=== PATIENT | male | born 1985 | race Caucasian/White ===

== ENCOUNTER → 2016-08-16 | Outpatient (CLI) | payer OTHER ==
[~2016-08-16] VITALS: Ht 198.1 cm; Wt 79.8 kg
[~2016-08-16] MED LIST: DICY10CA59 PO; GADOTERIDOL 279.3 MG/ML 10 ML (PROHANCE) SYR IV ONE; IOHEXOL 300 MG/ML 30 ML (OMNIPAQUE 300) VIAL IV ONE; PRD20T PO; SUCR1TAB36 PO
--- NOTE | 2016-08-16 10:03 | Diagnostic Imaging Report ---
EXAMINATION: Fluoroscopic guided joint injection/arthrogram- left. INDICATION: Left shoulder pain, request for MR arthrogram of the shoulder is submitted. Fluoroscopy time: 59 seconds CONSENT: Informed consent was obtained from the patient. The risks, benefits, potential complications and alternatives were reviewed and all questions answered to the patient's satisfaction. PROCEDURE: After sterile preparation and draping, 1% lidocaine was utilized for local anesthesia. A 22 spinal needle is introduced into the glenohumeral joint under fluoroscopic guidance. After confirmation of proper positioning with intra-articular injection of, 12 ml of 1:150 concentration of Gadavist in normal saline is injected the into the joint. The patient tolerated the procedure well with no immediate complications. FINDINGS: Arthrogram demonstrates Normal distribution of contrast in the joint with no filling of the subacromial subdeltoid bursa seen. IMPRESSION: Successful fluoroscopic guided injection of diluted gadolinium into the left shoulder . MR arthrogram to follow. Dictated by: Dictated on workstation # [id number]
--- NOTE | 2016-08-16 11:04 | Diagnostic Imaging Report ---
PROCEDURE: MRI left joint upper extremity with contrast. TECHNIQUE: Multiplanar, multisequence MRI with intra-articular contrast of the left shoulder was accomplished. INDICATION: Left shoulder pain. FINDINGS: There is no os acromiale or Hill-Sachs deformity. The long head biceps tendon is within its groove. The glenoid labrum and biceps anchor appear normal with no tear identified. In the inferior aspect of the glenoid, there is a focal area of significant cartilage thinning seen measuring 4 mm craniocaudally, coronal oblique image 11, and approximately 5 mm in the anteroposterior dimension. This could be related to old trauma or perhaps congenital. There is no abnormal signal in the underlying bone, and no irregularity of the underlying cortex as well. There is no bone marrow contusion to suggest recent injury. No loose body is seen in the joint. The acromioclavicular joint appears unremarkable. The rotator cuff tendons including the subscapularis tendon appear intact. There is a small amount of contrast seen within the subscapularis tendon fibers likely leaked from the injection site rather than related to a tear. IMPRESSION: 1. Focal area of significant cartilage thinning in the inferior aspect of the glenoid may relate to old injury or possibly a congenital cartilage defect. The underlying cortex and subchondral bone and marrow signal appear normal. 2. No rotator cuff or labral tears. Dictated by: Dictated on workstation # [id number]
== END ==
LOC: RAD 08:53
PROVIDERS: ATTEND Nurse Practitioner
DX: M75.112 Incomplete rotator cuff tear or rupture of left shoulder, not specified as traumatic (principal)
CPT/HCPCS: 23350; 49465; 73040; 73222

== ENCOUNTER → 2017-01-24 | Outpatient (CLI) | payer OTHER ==
[~2017-01-24] VITALS: Ht 198.1 cm; Wt 79.8 kg
[~2017-01-24] MED LIST changes: -GADOTERIDOL 279.3 MG/ML 10 ML (PROHANCE) SYR IV ONE; -IOHEXOL 300 MG/ML 30 ML (OMNIPAQUE 300) VIAL IV ONE
[2017-01-24 14:00] VITALS: BP 120/84
[2017-01-24 14:19] VITALS: BP 110/72
[2017-01-24] MEDS: GADOBUTROL 7.5 MMOL/7.5 ML (GADAVIST) VIAL IV ONE (14:39)
[2017-01-24] MEDS: IOHEXOL 300 MG/ML 50 ML (OMNIPAQUE 300) VIAL IV ONE (14:39)
[2017-01-24] MEDS: CATHETER FLUSH 10 ML SYR IV PRN (14:39)
--- NOTE | 2017-01-24 16:41 | Diagnostic Imaging Report ---
PROCEDURE: MRI left joint upper extremity with contrast. TECHNIQUE: Multiplanar, multisequence contrast-enhanced MRI of the left upper extremity was accomplished after direct intra-articular contrast administration into the glenohumeral joint. COMPARISON: Left shoulder MRI from 08/16/2016. INDICATION: Persistent shoulder pain. Prior surgery for cartilage repair. FINDINGS: Rotator cuff: No rotator cuff tear. No rotator cuff muscle atrophy or evidence of denervation injury. Glenoid labrum: Glenoid labrum is normal. Specifically, there is no labral tear. Long head of biceps: Long head of biceps is normal in position and intracapsular segment is intact. Bones and cartilage: Focal chondral defect along the inferior aspect of the glenoid has decreased in size, and is likely filled in with fibrocartilage. There remains a small focal concavity within the articular surface at the level of the old defect (best visualized on image 8, series 8. Underlying bone has a small tract with the neck, which may relate to drilling procedure. No new chondral defect. Humeral head has normal morphology. The acromioclavicular joint is normal. Soft tissues: Glenohumeral joint is well distended with intraarticular contrast. No loose bodies or proliferative synovitis. IMPRESSION: 1. There has been progressive healing of the focal chondral defect in the inferior aspect of the glenoid status post chondroplasty, which has near completely filled in with fibrocartilage. No new chondral defect. 2. Normal glenoid labrum. 3. Normal rotator cuff. Dictated by: Dictated on workstation # [id number]
--- NOTE | 2017-01-24 16:46 | Diagnostic Imaging Report ---
EXAMINATION: Fluoroscopic guided joint injection/arthrogram- left. INDICATION: Left shoulder pain, request for MR arthrogram of the shoulder is submitted. Fluoroscopy time: 21 seconds CONSENT: Informed consent was obtained from the patient. The risks, benefits, potential complications and alternatives were reviewed and all questions answered to the patient's satisfaction. PROCEDURE: After sterile preparation and draping, 1% lidocaine was utilized for local anesthesia. A 22 spinal needle is introduced into the glenohumeral joint under fluoroscopic guidance. After confirmation of proper positioning with intra-articular injection of, 12 ml of 1:150 concentration of Gadavist in normal saline is injected the into the joint. The patient tolerated the procedure well with no immediate complications. FINDINGS: Arthrogram demonstrates Normal distribution of contrast in the joint with no filling of the subacromial subdeltoid bursa seen. IMPRESSION: Successful fluoroscopic guided injection of diluted gadolinium into the left shoulder . MR arthrogram to follow. Dictated by: Dictated on workstation # [id number]
== END ==
LOC: RAD 13:46
PROVIDERS: ATTEND Orthopaedic Surgery
DX: M75.112 Incomplete rotator cuff tear or rupture of left shoulder, not specified as traumatic (principal)
CPT/HCPCS: 23350; 73040; 73222